=== PATIENT | female | born 1940 | race Caucasian/White ===

== ENCOUNTER → 2017-03-07 | Outpatient (CLI) | payer MEDICARE ==
[~2017-03-07] MED LIST: ANTIBIOTIC O500 U/GM TP; BACTRIM DS 8001 TA1 PO; LISINOPRIL5 MG PO; LUMIGAN 2.5 ML2.5 M1 OP; PRESERVISION1 SGL PO; UNKOWN PO; VITAMIN D25000 IU PO
== END | disposition home or self-care (01) ==
LOC: US 12:43
DX: M79.89 Other specified soft tissue disorders (principal); R09.89 Other specified symptoms and signs involving the circulatory and respiratory systems

== ENCOUNTER 2018-01-22 10:16 | Emergency (ER) | payer MEDICARE ==
[~2018-01-22] VITALS: Ht 165.1 cm; Wt 76.7 kg
[2018-01-22 10:30] LABS: BASO % 0.3 % (0.0-1.0); EOS % 0.1 % (1.0-4.0); HEMATOCRIT 37.3 % (37.0-47.0); LYMPH # 1.7 10*3/uL (1.3-4.4); LYMPH % 11.3 % (27.0-41.0); MEAN CELL VOLUME 89.7 fl (81.0-99.0); MEAN CORPUSCULAR HGB 28.8 pg (27.0-31.0); MEAN CORPUSCULAR HGB CONC 32.2 g/dl (33.0-37.0); MEAN PLATELET VOLUME 9.7 fl (9.6-12.3); MONO # 1.2 10*3/uL (0.1-1.0); MONO % 8.1 % (3.0-9.0); NEUT # 11.8 10*3/uL (2.3-7.9); NEUT % 79.7 % (47.0-73.0); PLATELET COUNT AUTOMATED 267 10*3/uL (130-400); RED BLOOD COUNT 4.16 10*6/uL (4.10-5.10); WHITE BLOOD COUNT 14.7 10*3/uL (4.8-10.8)
[2018-01-22 10:43] LABS: ACT PARTIAL THROMBO TIME 24.6 SECONDS (20.8-31.5)
[2018-01-22 10:46] LABS: ALBUMIN 3.7 gm/dl (3.1-4.5); ALKALINE PHOSPHATASE 137 U/L (45-117); BUN 17 mg/dl (7-24); CHLORIDE 103 mmol/L (98-107); CREATININE 0.84 mg/dL (0.55-1.02); POTASSIUM 3.4 mmol/L (3.5-5.1); SGOT/AST 18 IU/L (3-35); SGPT/ALT 20 U/L (12-78); SODIUM 137 mmol/L (136-145); TOTAL PROTEIN 7.2 gm/dL (6.4-8.2)
[2018-01-22 10:49] LABS: TROPONIN I < 0.015 ng/ml (<0.045)
== END 2018-01-22 12:31 | disposition home or self-care (01) ==
LOC: ED 10:16
PROVIDERS: Emergency Medicine
DX: T18.198A Other foreign object in esophagus causing other injury, initial encounter (principal); R51 Headache; Z88.6 Allergy status to analgesic agent; Z79.899 Other long term (current) drug therapy; X58.XXXA Exposure to other specified factors, initial encounter; Y93.89 Activity, other specified; Y92.89 Other specified places as the place of occurrence of the external cause; Y99.8 Other external cause status

== ENCOUNTER 2018-02-20 11:55 | Emergency (ER) | payer MEDICARE ==
[~2018-02-20] VITALS: Wt 76.2 kg
[2018-02-20] MEDS ORDERED: CEPHALEXIN500 M1 PO (14:50)
== END 2018-02-20 14:50 | disposition left against medical advice (07) ==
LOC: ED 11:55
DX: L03.116 Cellulitis of left lower limb (principal); Z88.6 Allergy status to analgesic agent; Z79.899 Other long term (current) drug therapy

== ENCOUNTER 2020-08-26 04:57 | Inpatient (IN) | payer MEDICARE ==
[~2020-08-26] VITALS: Ht 167.6 cm; Wt 76.9 kg
[~2020-08-26 04:57] MED LIST changes: +CEPHALEXIN500 M1 PO
[2020-08-26 05:00] VITALS: BP 131/57
[2020-08-26 05:52] LABS: ALBUMIN 3.5 gm/dl (3.1-4.5); ALKALINE PHOSPHATASE 159 U/L (45-117); BUN 9 mg/dl (7-24); CHLORIDE 104 mmol/L (98-107); CREATININE 0.93 mg/dL (0.55-1.02); POTASSIUM 3.7 mmol/L (3.5-5.1); SGOT/AST 21 IU/L (3-35); SGPT/ALT 21 U/L (12-78); SODIUM 141 mmol/L (136-145); TOTAL PROTEIN 6.8 gm/dL (6.4-8.2)
[2020-08-26 05:53] LABS: TROPONIN I < 0.015 ng/ml (<0.045)
[2020-08-26 06:03] LABS: BASO % 0.5 % (0.0-1.0); EOS # 0.1 10*3/uL (0.0-0.4); EOS % 1.7 % (1.0-4.0); HEMATOCRIT 38.9 % (37.0-47.0); LYMPH # 1.1 10*3/uL (1.3-4.4); LYMPH % 18.4 % (27.0-41.0); MEAN CELL VOLUME 91.1 fl (81.0-99.0); MEAN CORPUSCULAR HGB CONC 31.9 g/dl (33.0-37.0); MEAN PLATELET VOLUME 10.3 fl (9.6-12.3); MONO # 0.7 10*3/uL (0.1-1.0); MONO % 11.4 % (3.0-9.0); NEUT # 3.8 10*3/uL (2.3-7.9); NEUT % 66.1 % (47.0-73.0); PLATELET COUNT AUTOMATED 245 10*3/uL (130-400); RED BLOOD COUNT 4.27 10*6/uL (4.10-5.10); RED CELL DISTRI WIDTH 14.4 % (0-14.5); WHITE BLOOD COUNT 5.8 10*3/uL (4.8-10.8)
[2020-08-26 11:08] VITALS: BP 130/57
[2020-08-26 12:20] VITALS: BP 141/60
[2020-08-26 12:40] VITALS: BP 141/60
[2020-08-26] MEDS ORDERED: AMBIEN12.5 MG PO (13:57)
[2020-08-26] MEDS ORDERED: FAMOTIDINE20 M1 PO (14:00)
[2020-08-26] MEDS ORDERED: POTASSIUM CHLO10 ME4 PO (14:00)
[2020-08-26] MEDS ORDERED: FUROSEMIDE20 M1 PO (14:00)
[2020-08-26] MEDS ORDERED: METOPROLOL SUCC25 M2 PO (14:00)
[2020-08-26] MEDS ORDERED: AMLODIPINE BESYL5 MG PO (14:01)
[2020-08-26 16:00] VITALS: BP 152/55
[2020-08-26 20:00] VITALS: BP 124/76
[2020-08-27] VITALS: BP 148/63
[2020-08-27 08:00] VITALS: BP 128/54
[2020-08-27 12:00] VITALS: BP 112/93
[2020-08-27 16:00] VITALS: BP 119/54
[2020-08-27 20:00] VITALS: BP 140/52
[2020-08-28] VITALS: BP 126/54; BP 130/55
[2020-08-28 08:00] VITALS: BP 126/49
[2020-08-28 12:00] VITALS: BP 131/43
[2020-08-28 16:00] VITALS: BP 115/51
[2020-08-28 22:00] VITALS: BP 126/54
[2020-08-29] VITALS: BP 124/49
[2020-08-29 09:00] VITALS: BP 122/72
[2020-08-29 12:00] VITALS: BP 134/52
[2020-08-29] MEDS ORDERED: AMBIEN12.5 MG PO (12:38)
[2020-08-29] MEDS ORDERED: TRAZODONE50 MG PO (12:43)
[2020-08-29] MEDS ORDERED: ST. JOSEPH ASPI81 MG PO (14:30)
[2020-08-29] MEDS ORDERED: HYDROCODONE-AC1 EAC1 PO (14:32)
== END 2020-08-29 17:19 | disposition other institution (70) | DRG 177 ==
LOC: ED 04:57 → EDHOLD 09:08 → 4E 09:08
PROVIDERS: Emergency Medicine; ADMIT Internal Medicine; ATTEND Internal Medicine
DX: U07.1 COVID-19 (principal); S32.454A Nondisplaced transverse fracture of right acetabulum, initial encounter for closed fracture; S32.591A Other specified fracture of right pubis, initial encounter for closed fracture; R26.2 Difficulty in walking, not elsewhere classified; W19.XXXA Unspecified fall, initial encounter; R73.9 Hyperglycemia, unspecified; R74.8 Abnormal levels of other serum enzymes; K21.9 Gastro-esophageal reflux disease without esophagitis; X58.XXXA Exposure to other specified factors, initial encounter; G47.00 Insomnia, unspecified; I10 Essential (primary) hypertension; Y93.89 Activity, other specified; Y99.8 Other external cause status; Y92.009 Unspecified place in unspecified non-institutional (private) residence as the place of occurrence of the external cause; Z90.49 Acquired absence of other specified parts of digestive tract; Z87.891 Personal history of nicotine dependence; Z88.5 Allergy status to narcotic agent; Z79.899 Other long term (current) drug therapy

== ENCOUNTER → 2020-09-07 | Outpatient (CLI) | payer MEDICARE ==
[~2020-09-07] MED LIST changes: +AMBIEN12.5 MG PO; +AMLODIPINE BESYL5 MG PO; +FAMOTIDINE20 M1 PO; +FUROSEMIDE20 M1 PO; +HYDROCODONE-AC1 EAC1 PO; +METOPROLOL SUCC25 M2 PO; +POTASSIUM CHLO10 ME4 PO; +ST. JOSEPH ASPI81 MG PO; +TRAZODONE50 MG PO
== END | disposition home or self-care (01) ==
LOC: ORTHO 01:01
PROVIDERS: ATTEND Orthopaedic Surgery
DX: S32.591D Other specified fracture of right pubis, subsequent encounter for fracture with routine healing (principal); X58.XXXD Exposure to other specified factors, subsequent encounter

== ENCOUNTER → 2020-09-21 | Outpatient (CLI) | payer MEDICARE | END | disposition home or self-care (01) | LOC: ORTHO 10:36 | PROVIDERS: ATTEND Orthopaedic Surgery | DX: S32.511D Fracture of superior rim of right pubis, subsequent encounter for fracture with routine healing (principal); M25.751 Osteophyte, right hip; X58.XXXD Exposure to other specified factors, subsequent encounter ==

== ENCOUNTER 2024-08-07 09:47 | Observation (INO) | payer MEDICARE ==
[~2024-08-07] VITALS: Ht 167.6 cm; Wt 73.7 kg
[2024-08-07 09:47] VITALS: BP 155/56
[2024-08-07] MEDS ORDERED: Ondansetron Hydrochloride 4 MG/2 ML VIAL IV ONE (09:50)
[2024-08-07] MEDS ORDERED: DIAZEPAM 5 MG TAB PO ONE (09:50)
[2024-08-07] MEDS ORDERED: SODIUM CHLORIDE 0.9% 1,000 ML IV ONE (09:50)
[2024-08-07] MEDS ORDERED: Meclizine Hydrochloride 25 MG TAB PO ONE (09:50)
[2024-08-07 10:29] LABS: BASO % 0.5 % (0.0-1.0); EOS # 0.2 10*3/uL (0.0-0.4); EOS % 2.8 % (1.0-4.0); MEAN CELL VOLUME 90.5 fl (81.0-99.0); MEAN CORPUSCULAR HGB CONC 32.1 g/dl (33.0-37.0); MEAN PLATELET VOLUME 9.8 fl (9.6-12.3); MONO # 0.5 10*3/uL (0.1-1.0); MONO % 8.6 % (3.0-9.0); NEUT # 3.9 10*3/uL (2.3-7.9); PLATELET COUNT AUTOMATED 259 10*3/uL (130-400); RED BLOOD COUNT 4.31 10*6/uL (4.10-5.10); RED CELL DISTRI WIDTH 14.6 % (0-14.5); WHITE BLOOD COUNT 6.1 10*3/uL (4.8-10.8)
[2024-08-07 10:35] VITALS: BP 124/52
[2024-08-07 10:49] LABS: BUN 13 mg/dl (9-23); CHLORIDE 107 mmol/L (98-107); POTASSIUM 3.8 mmol/L (3.4-5.1)
[2024-08-07] MEDS ORDERED: Ondansetron4 MG PO (11:14)
[2024-08-07] MEDS ORDERED: ANTIVERT25 M2 PO (11:14)
[2024-08-07] MEDS ORDERED: BISACODYL 5 MG TAB PO PRN (13:35)
[2024-08-07] MEDS ORDERED: ACETAMINOPHEN 650 MG SUPP R PRN (13:35)
[2024-08-07] MEDS ORDERED: BISACODYL 10 MG SUPP R PRN (13:35)
[2024-08-07] MEDS ORDERED: ACETAMINOPHEN 325 MG TAB PO PRN (13:35)
[2024-08-07] MEDS ORDERED: Ondansetron Hydrochloride 4 MG/2 ML VIAL IV PRN (13:35)
[2024-08-07] MEDS ORDERED: Magnesium Hydroxide 30 ML UDC PO PRN (13:35)
[2024-08-07] MEDS ORDERED: MORPHINE Sulfate 2 MG/ML SYR IV PRN (13:35)
[2024-08-07] MEDS ORDERED: Scopolamine 1 PATCH PATCH T PRN (14:15)
[2024-08-07] MEDS ORDERED: POTASSIUM CHLO10 ME5 PO (14:40)
[2024-08-07] MEDS ORDERED: ZOLPIDEM TART5 MG PO (14:40)
[2024-08-07] MEDS ORDERED: LUMIGAN50 DRP OPH (14:41)
[2024-08-07] MEDS ORDERED: ALPHAGAN P 15 M15 M1 OPH (14:41)
[2024-08-07] MEDS ORDERED: Synthroid,Levo25 MCG PO (14:41)
[2024-08-07] MEDS ORDERED: LASIX20 MG PO (14:42)
[2024-08-07] MEDS ORDERED: METOPROLOL SUCC25 M2 PO (14:43)
[2024-08-07 16:28] VITALS: BP 108/42
[2024-08-07 16:30] VITALS: BP 141/55
[2024-08-07] MEDS ORDERED: Meclizine Hydrochloride 12.5 MG TAB PO SCH (18:00)
[2024-08-07 20:00] VITALS: BP 134/47
[2024-08-08] VITALS: BP 135/60
[2024-08-08 06:06] LABS: ALKALINE PHOSPHATASE 116 U/L (46-116); BUN 9 mg/dl (9-23); CHLORIDE 108 mmol/L (98-107); FREE T4 1.18 ng/dl (0.89-1.76); POTASSIUM 3.3 mmol/L (3.4-5.1); SGPT/ALT 12 U/L (5-49); TOTAL PROTEIN 6.1 gm/dL (6.0-8.0)
[2024-08-08 06:18] LABS: BASO # 0.1 10*3/uL (0.0-0.1); EOS # 0.2 10*3/uL (0.0-0.4); EOS % 2.8 % (1.0-4.0); HEMATOCRIT 37.9 % (37.0-47.0); MEAN CELL VOLUME 88.8 fl (81.0-99.0); MEAN CORPUSCULAR HGB CONC 32.7 g/dl (33.0-37.0); MEAN PLATELET VOLUME 10.3 fl (9.6-12.3); MONO # 0.7 10*3/uL (0.1-1.0); MONO % 10.3 % (3.0-9.0); NEUT # 4.3 10*3/uL (2.3-7.9); NEUT % 60.5 % (47.0-73.0); PLATELET COUNT AUTOMATED 262 10*3/uL (130-400); RED BLOOD COUNT 4.27 10*6/uL (4.10-5.10); RED CELL DISTRI WIDTH 14.9 % (0-14.5); WHITE BLOOD COUNT 7.1 10*3/uL (4.8-10.8)
[2024-08-08 06:43] LABS: VITAMIN D, 25-HYDROXY 33.8 ng/mL (30-100)
[2024-08-08] MEDS ORDERED: POTASSIUM CHLORIDE 10 MEQ TAB PO ONE (07:30)
[2024-08-08] MEDS ORDERED: POTASSIUM CHLORIDE 20 MEQ TAB PO ONE (07:30)
[2024-08-08 08:00] VITALS: BP 134/56
[2024-08-08] MEDS ORDERED: Enoxaparin Sodium 40 MG/0.4 ML SYR SC SCH (10:00)
[2024-08-08 12:00] VITALS: BP 113/54
[2024-08-08] MEDS ORDERED: Perflutren Protein Type A Mi 2 ML VIAL IV ONE (12:42)
[2024-08-08 16:00] VITALS: BP 123/88
[2024-08-08] MEDS ORDERED: MECLIZINE HYD12.5 MG PO (16:05)
[2024-08-08] MEDS ORDERED: NYSTATIN 15 GM BOT T SCH (22:00)
== END 2024-08-08 17:47 | disposition home or self-care (01) ==
LOC: ED 09:47 → EDHOLD 12:42 → 4E 12:42 → EDHOLD 12:42 → 4E 15:27
PROVIDERS: Emergency Medicine; Student in an Organized Health Care Education/Training Program; ADMIT Internal Medicine; ATTEND Internal Medicine
DX: R73.9 Hyperglycemia, unspecified (principal); I10 Essential (primary) hypertension; K21.9 Gastro-esophageal reflux disease without esophagitis; G47.00 Insomnia, unspecified; H81.10 Benign paroxysmal vertigo, unspecified ear; R42 Dizziness and giddiness; G90.9 Disorder of the autonomic nervous system, unspecified; Z79.899 Other long term (current) drug therapy